=== PATIENT | male | born 1975 | race Caucasian/White ===

== ENCOUNTER → 2016-04-12 | Outpatient (CLI) | payer BC ==
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
== END ==
LOC: RAD 16:21
PROVIDERS: ATTEND Physician Assistant
DX: M79.641 Pain in right hand (principal); S60.221A Contusion of right hand, initial encounter; W22.8XXA Striking against or struck by other objects, initial encounter; Y93.89 Activity, other specified; Y92.79 Other farm location as the place of occurrence of the external cause
CPT/HCPCS: 73130

== ENCOUNTER → 2016-06-05 | Outpatient (CLI) | payer BC ==
[2016-06-05 09:36] LABS: CREATINE KINASE MB 0.25 NG/DL (0.00-5.00)
[2016-06-05 09:37] LABS: TROPONIN I < 0.012 ng/mL (< 0.040)
--- NOTE | 2016-06-06 15:59 | HOLTER ---
[facility] Interpretive Statements This is a 24 hour Holter study done for "chest pain." There is a diary reporting 13 different activities (without symptoms) during which there were 3 of the 13 marked rhythm strips with isolated VPCs and the predominate rhythm of normal sinus at normal rates. There was one reported episode of "feeling weird" at 6:45 PM when there was NSR at a rate of 76 BPM with 3 isolated VPCs in a span of 15 seconds. Out of the total of 93,118 recorded beats there were 667 possible ventricular ectopics which were all singlets and 9 episodes of short duration bigeminy--no episodes of V-tach. There were only 29 possible atrial ectopics and no episodes of SVT. There were no pauses > 2 seconds and slowest bradycardia was 46 BPM at 3:34 AM. There were no significant tachycardias. ST and QTc analyses were within normal limits. IMPRESSION: Poor correlation of symptoms with ectopy in a 24 hour study containing mostly isolated VPCs. Consider stress testing. Electronically Signed On 06-07-16 10:36:[address] [facility] by Masood Gardner MD [email or web address]
== END ==
LOC: LAB 08:57
PROVIDERS: ATTEND Obstetrics & Gynecology Gynecology
DX: R07.9 Chest pain, unspecified (principal); M79.602 Pain in left arm; I49.8 Other specified cardiac arrhythmias
CPT/HCPCS: 36415; 82550; 82553; 84484; 93225; 93226; 93227

== ENCOUNTER 2016-10-05 16:31 | Emergency (ER) | payer BC ==
[2016-10-05 17:11] VITALS: RESP 16; TEMP 97.7
[2016-10-05] MEDS ORDERED: ACETAMINOPHEN 500 MG TABLET PO ONE (17:14)
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
== END 2016-10-05 18:10 | disposition home or self-care (01) ==
LOC: ER 16:31
DX: S82.62XA Displaced fracture of lateral malleolus of left fibula, initial encounter for closed fracture (principal); S06.0X0A Concussion without loss of consciousness, initial encounter; S00.03XA Contusion of scalp, initial encounter; R42 Dizziness and giddiness; S50.02XA Contusion of left elbow, initial encounter; V28.0XXA Motorcycle driver injured in noncollision transport accident in nontraffic accident, initial encounter
CPT/HCPCS: 70450; 73070; 73610; 99283